=== PATIENT | male | born 1965 | race African-American/Black ===

== ENCOUNTER 2016-11-14 01:28 | Emergency (ER) | payer OTHER ==
[~2016-11-14] VITALS: Ht 170.2 cm; Wt 64.0 kg
[2016-11-14 01:32] VITALS: TEMP 37.1; Ht 170.2 cm; Wt 64.0 kg
[2016-11-14 01:46] VITALS: O2SAT 95
[2016-11-14] MEDS ORDERED: OLAN1TAB13 PO (01:55)
[2016-11-14] MEDS ORDERED: DOCU-94 PO (01:55)
[2016-11-14] MEDS ORDERED: OXCA600T3 PO (01:55)
[2016-11-14] MEDS ORDERED: OLAN1TAB5 PO (01:55)
[2016-11-14] MEDS ORDERED: OPTIRAY 320 IV PRN (02:15)
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
[2016-11-14 02:43] LABS: COMPLETE YES; HEMATOCRIT 42.2 % (42-52); IG% 0.2 %; LYMPH % 4.3 %; LYMPH ABS # 0.71 K/uL (1.2-3.4); MEAN CELL VOLUME 80.4 fL (80-100); MEAN CORPUSCULAR HEMOGLOBIN 27.8 pg (25-34); MEAN CORPUSCULAR HGB CONC 34.6 g/dl (32-36); MEAN PLATELET VOLUME 9.3 fL (7.4-10.4); MONO % 6.4 %; NEUT % 89.1 %; PLATELET COUNT 306 K/uL (130-400); RED BLOOD COUNT 5.25 M/uL (4.7-6.1); WHITE BLOOD COUNT 16.69 K/uL (4.8-10.8)
[2016-11-14 02:57] LABS: INR 1.1 (0.9-1.1)
[2016-11-14 03:06] LABS: BUN/CREATININE RATIO 10.7 (10-20); CALCIUM 9.1 mg/dl (8.5-10.1); CREATININE 2.3 mg/dl (0.60-1.40); POTASSIUM 3.9 mmol/L (3.5-5.1)
[2016-11-14 03:09] LABS: ALB/GLOB RATIO 1.2 (0.9-2)
[2016-11-14] MEDS ORDERED: SODIUM CHLORIDE 0.9% 1000ML 1,000 ML IV STA (03:50)
[2016-11-14] MEDS ORDERED: AMPICILLIN/SULBACTAM SOD INJ 3,000 MG in SODIUM CHLORIDE 0.9% 100ML 100 ML IV ONE (05:00)
[2016-11-14 06:01] VITALS: BP 105/71
[2016-11-14 06:41] VITALS: PULSE 83; O2SAT 97
--- NOTE | 2016-11-14 07:11 | DIAGNOSTIC IMAGING REPORT ---
CT SOFT TISSUE NECK WITHOUT CT DOSE: CLINICAL HISTORY: Severe pain following foreign body ingestion. Evaluate for perforation. TECHNIQUE: A dose lowering technique was utilized adhering to the principles of ALARA. COMPARISON STUDY: None. FINDINGS: There is extensive subcutaneous emphysema with the deep and superficial soft tissues of the neck. If there is clinical concern of the presence of an esophageal perforation, then a study with water-soluble oral contrast could be obtained in follow-up. There is a right maxillary sinus air-fluid level. There is a left maxillary sinus retention cyst. No salivary gland lesions are identified on this noncontrast study. There is pneumomediastinum. No pneumothorax is visualized. There is no evidence of pathologic adenopathy. No esophageal foreign bodies are visualized. There is a tiny opacity within the right soft tissues at the level of the right vocal cord. While likely representing a physiologic calcification, a tiny foreign body cannot be excluded. IMPRESSION: 1. Pneumomediastinum, and extensive subcutaneous emphysema within the deep and superficial soft tissues of the neck 2. No evidence of pneumothorax 3. 3 mm radiopaque density adjacent to the right arytenoid footplate. While likely representing a physiologic calcification, a tiny foreign body cannot be excluded Electronically signed by: Moe Moreno M.D. 11/14/2016 7:09 AM Dictated Date/Time: 11/14/2016 7:02 AM
--- NOTE | 2016-11-14 07:34 | DIAGNOSTIC IMAGING REPORT ---
CT SCAN OF THE CHEST WITHOUT IV CONTRAST CLINICAL HISTORY: Atypical chest pain. Clinical concern for esophageal perforation. Reported foreign body ingestion. COMPARISON STUDY: No priors. TECHNIQUE: CT scan of the thorax was performed from the thoracic inlet to the upper abdomen. Images are reviewed in the axial, sagittal, and coronal planes. IV contrast was not administered for this examination as per the referring clinician. Note that the examination was performed in significantly suboptimal fashion without IV and oral contrast. The examination is also degraded by streak artifact from the patient's arms which could not be elevated above the chest. A dose lowering technique was utilized adhering to the principles of ALARA. CT DOSE: 1087.16 mGy.cm FINDINGS: Thyroid: Not well visualized and possibly atrophic. Esophagus: The esophagus is not well assessed without enteric contrast. Esophagus is grossly normal in morphology with no obvious defect. Thoracic aorta: The thoracic aorta is normal in caliber and demonstrates standard 3-vessel arch anatomy. Heart: The heart is normal in size and without pericardial effusion. Lungs and pleural spaces: Small metallic foreign bodies are present in the left lower lobe. The trachea and central airways are clear. No definite pneumothorax is identified. Mild emphysema is observed. There is scarring at the left lung base. A curvilinear density in the anterior left lung base within the lingula likely represents round atelectasis. No airspace consolidation is seen typical for pneumonia. Mediastinum: There is extensive pneumomediastinum. No mediastinal adenopathy or hemorrhage is seen. See report of abdominal CT performed concurrently for detailed intra-abdominal findings. Meme: Not well assessed without IV contrast. Axillae: There is no axillary lymphadenopathy. Upper abdomen: The partially imaged kidneys appear atrophic and appear to demonstrate numerous cystic foci. There are numerous punctate bilateral renal calculi. Small metallic foreign bodies are seen in the left upper quadrant. A metallic foreign body is suggested in the stomach. See report of abdominal CT performed concurrently for detailed intra-abdominal findings. Skeletal structures: No lytic or blastic bony lesions are seen. Soft tissues: There is extensive subcutaneous emphysema identified in the lower neck and the chest wall, right greater than left. There are numerous small metallic foreign bodies identified in the left lower chest wall. IMPRESSION: 1. Significantly suboptimal examination without IV and enteric contrast. 2. There is extensive pneumomediastinum as well as subcutaneous emphysema. Subcutaneous emphysema is greatest in the lower neck and upper chest. 3. The esophagus is grossly unremarkable but not well evaluated. No obvious mucosal defect is seen. Given the degree of pneumomediastinum and history of foreign body ingestion esophageal perforation would be impossible to exclude. 4. A radiodense metallic foreign body is suggested in the stomach. 5. Mild emphysema. 6. No definite pneumothorax is seen. Assessment for a small pneumothorax is compromised by the presence of adjacent pneumomediastinum. 7. Numerous metallic foreign bodies are present in the left lower thorax. There is left basilar scarring, and a curvilinear density in the lingula likely represents round atelectasis. This is likely chronic. Correlation with the medical history and any prior imaging studies will be required. 8. No airspace consolidation is seen typical for pneumonia and there is no pleural effusion. 9. Additional findings as above. Electronically signed by: Elliot Garg M.D. 11/14/2016 7:33 AM Dictated Date/Time: 11/14/2016 7:23 AM
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
== END 2016-11-14 07:54 | disposition short-term general hospital (02) ==
LOC: C.EDB 01:29
DX: T18.198A Other foreign object in esophagus causing other injury, initial encounter (principal); S27.818A Other injury of esophagus (thoracic part), initial encounter; X83.8XXA Intentional self-harm by other specified means, initial encounter; Y92.89 Other specified places as the place of occurrence of the external cause; F17.200 Nicotine dependence, unspecified, uncomplicated; Z79.899 Other long term (current) drug therapy; Z88.8 Allergy status to other drugs, medicaments and biological substances